=== PATIENT | female | born 1985 | race Caucasian/White ===

== ENCOUNTER 2018-02-25 13:26 | Emergency (ER) | payer OTHER | END 2018-02-25 14:03 | disposition left against medical advice (07) | LOC: ER 13:27 | DX: Z76.0 Encounter for issue of repeat prescription (principal); Z53.21 Procedure and treatment not carried out due to patient leaving prior to being seen by health care provider ==

== ENCOUNTER 2020-02-01 23:58 | Emergency (ER) | payer MEDICAID, OTHER ==
[~2020-02-01] VITALS: Ht 154.9 cm; Wt 59.0 kg
[2020-02-02 00:02] VITALS: BP 133/95
[2020-02-02] MEDS ORDERED: SULF1TAB49 PO (00:29)
[2020-02-02] MEDS ORDERED: CEPH500C5 PO (00:29)
[2020-02-02] MEDS ORDERED: cephalexin 500mg capsule PO ONE (00:30)
[2020-02-02] MEDS ORDERED: sulfamethoxazole/trimethoprim DS (800/160mg) tablet PO ONE (00:30)
== END 2020-02-02 01:00 | disposition home or self-care (01) ==
LOC: ER 23:58
DX: L03.113 Cellulitis of right upper limb (principal); F11.10 Opioid abuse, uncomplicated; M79.641 Pain in right hand; M79.89 Other specified soft tissue disorders; F17.200 Nicotine dependence, unspecified, uncomplicated; F15.90 Other stimulant use, unspecified, uncomplicated; Z59.0 Homelessness; Z88.5 Allergy status to narcotic agent; Z79.2 Long term (current) use of antibiotics
CPT/HCPCS: 99283

== ENCOUNTER 2020-02-05 23:43 | Emergency (ER) | payer MEDICAID ==
[~2020-02-05 23:43] MED LIST: CEPH500C5 PO; SULF1TAB49 PO
--- NOTE | 2020-02-06 00:15 | NUR ---
pt left er after registering MD aware, no need to call patient.
== END 2020-02-06 00:15 | disposition left against medical advice (07) ==
LOC: ER 23:44
DX: F19.239 Other psychoactive substance dependence with withdrawal, unspecified (principal); Z53.21 Procedure and treatment not carried out due to patient leaving prior to being seen by health care provider

== ENCOUNTER 2021-11-27 19:21 | Emergency (ER) | payer MEDICAID ==
[~2021-11-27] VITALS: Ht 154.9 cm; Wt 65.9 kg
[2021-11-27 19:30] VITALS: BP 142/86
[2021-11-27] MEDS ORDERED: bisacodyl 5mg tablet.DR PO ONE (20:15)
[2021-11-27] MEDS ORDERED: magnesium citrate 296ml oral solution PO ONE (20:15)
[2021-11-27] MEDS ORDERED: methylnaltrexone br 12mg/0.6ml inj***SubQ only SQ ONE (20:15)
[2021-11-27] MEDS ORDERED: MAGN296S68 PO (20:16)
[2021-11-27] MEDS ORDERED: BISA-79 PO (20:16)
== END 2021-11-27 20:58 | disposition home or self-care (01) ==
LOC: ER 19:21
DX: K59.00 Constipation, unspecified (principal); F15.20 Other stimulant dependence, uncomplicated; F11.90 Opioid use, unspecified, uncomplicated; Z88.5 Allergy status to narcotic agent; Z98.51 Tubal ligation status; Z56.0 Unemployment, unspecified
CPT/HCPCS: 96372; 99283; J2212

== ENCOUNTER 2022-02-02 14:31 | Emergency (ER) | payer MEDICAID ==
[~2022-02-02] VITALS: Ht 154.9 cm; Wt 63.6 kg
[~2022-02-02 14:31] MED LIST changes: +BISA-79 PO; -CEPH500C5 PO; +MAGN296S68 PO; -SULF1TAB49 PO
[2022-02-02 14:53] VITALS: BP 118/68
[2022-02-02] MEDS ORDERED: ondansetron 4mg rapidly disintigrating tab PO ONE (15:35)
[2022-02-02 15:50] LABS: BASOPHILS # (AUTO) 0.1 X10'3 (0-0.2); BASOPHILS % (AUTO) 1.2 % (0-1); EOSINOPHILS # (AUTO) 0.3 X10'3 (0-0.9); EOSINOPHILS % (AUTO) 4.2 % (0-6); HEMATOCRIT 43.3 % (35.0-45.0); HEMOGLOBIN 14.7 g/dl (12.0-16.0); LYMPHOCYTES # (AUTO) 1.9 X10'3 (1.1-4.8); LYMPHOCYTES % (AUTO) 30.5 % (21-51); MEAN CORPUSCULAR HEMOGLOBIN 31.3 PG (27.0-31.0); MEAN CORPUSCULAR HGB CONC 33.8 g/dL (33.0-36.5); MEAN CORPUSCULAR VOLUME 92.6 FL (78-98); MONOCYTES # (AUTO) 0.5 X10'3 (0-0.9); MONOCYTES % (AUTO) 7.7 % (2-12); NEUTROPHILS # (AUTO) 3.5 X10'3 (1.8-7.7); NEUTROPHILS % (AUTO) 56.4 % (42-75); PLATELET COUNT 268 X10'3 (140-440); RED BLOOD COUNT 4.68 X10'6 (4.20-5.60); RED CELL DISTRIBUTION WIDTH 13.3 % (11.5-14.5); WHITE BLOOD COUNT 6.1 X10'3 (4.5-11.0)
[2022-02-02 15:59] LABS: URINE HCG NEGATIVE (NEG)
[2022-02-02 16:05] LABS: ALANINE AMINOTRANSFERASE 26 U/L (12-78); ALBUMIN 3.8 G/DL (3.4-5.0); ALBUMIN/GLOBULIN RATIO 1.1 (1.1-1.5); ALKALINE PHOSPHATASE 72 IU/L (46-116); ANION GAP 6 (8-16); ASPARTATE AMINO TRANSFERASE 26 U/L (10-37); BILIRUBIN,TOTAL 0.2 MG/DL (0.1-1.0); BLOOD UREA NITROGEN 20 MG/DL (7-18); BUN/CREATININE RATIO 28.6 (6.6-38.0); CALCIUM 8.5 MG/DL (8.5-10.1); CHLORIDE 106 MMOL/L (99-107); GLUCOSE 91 MG/DL (70-104); LIPASE 63 U/L (73-393); POTASSIUM 4.1 MMOL/L (3.5-5.1); SODIUM 139 MMOL/L (135-145); TOTAL CARBON DIOXIDE 26.9 MMOL/L (24-32); TOTAL PROTEIN 7.3 G/DL (6.4-8.2); eGFR > 90 ML/MIN
[2022-02-02 16:08] LABS: CLARITY,URINE CLOUDY (Clear); COLOR,URINE YELLOW (Yellow); GLUCOSE, URINE NEGATIVE (Neg); KETONES,URINE NEGATIVE (Neg); LEUKOCYTE ESTERASE ,URINE NEGATIVE (Neg); NITRITES, URINE POSITIVE (Neg); OCCULT BLOOD,URINE SMALL (Neg); PROTEIN,URINE NEGATIVE (Neg)
[2022-02-02 16:10] LABS: UA COLLECTION TYPE CLN CATCH MIDSTREAM
[2022-02-02 16:13] LABS: BACTERIA,URINE 4+ /HPF (Neg); MUCUS STRANDS NONE SEEN /LPF (Neg); SQUAMOUS EPITHELIAL CELL,UR MODERATE /LPF (FEW); WBC CLUMPS,URINE FEW /HPF (NEGATIVE)
[2022-02-02] MEDS ORDERED: ONDA4TAB12 PO (16:17)
[2022-02-02] MEDS ORDERED: NITR100C6 PO (16:17)
[2022-02-02] MEDS ORDERED: nitrofuran monohydrate/nitrofuran macrocrysal 100 MG (MacroBID) capsule PO ONE (16:20)
== END 2022-02-02 16:36 | disposition home or self-care (01) ==
LOC: ER 14:31
DX: K52.89 Other specified noninfective gastroenteritis and colitis (principal); Z20.822 Contact with and (suspected) exposure to COVID-19; N30.00 Acute cystitis without hematuria; F15.10 Other stimulant abuse, uncomplicated; F11.10 Opioid abuse, uncomplicated; Z59.00 Homelessness unspecified; Z88.5 Allergy status to narcotic agent; Z79.899 Other long term (current) drug therapy
CPT/HCPCS: 36415; 80053; 81001; 81025; 83690; 85025; 87077; 87088; 87186; 87502; 87503; 87811; 99283; J7030

== ENCOUNTER 2022-07-13 17:43 | Emergency (ER) | payer MEDICAID ==
[~2022-07-13] VITALS: Ht 157.5 cm; Wt 64.0 kg
[~2022-07-13 17:43] MED LIST changes: +NITR100C6 PO; +ONDA4TAB12 PO
[2022-07-13 17:47] VITALS: BP 116/76
[2022-07-13] MEDS ORDERED: TRIA15CR61 TOP (17:52)
== END 2022-07-13 18:02 | disposition home or self-care (01) ==
LOC: ER 17:43
DX: L23.9 Allergic contact dermatitis, unspecified cause (principal); F15.20 Other stimulant dependence, uncomplicated; F11.10 Opioid abuse, uncomplicated; Z88.5 Allergy status to narcotic agent; Z98.51 Tubal ligation status; Z56.0 Unemployment, unspecified; Z59.00 Homelessness unspecified
CPT/HCPCS: 99283

== ENCOUNTER 2023-01-22 10:36 | Emergency (ER) | payer MEDICAID ==
[~2023-01-22] VITALS: Ht 157.5 cm; Wt 63.8 kg
[2023-01-22 11:08] LABS: BASOPHILS % (AUTO) 0.7 % (0-1); EOSINOPHILS # (AUTO) 0.2 X10'3 (0-0.9); EOSINOPHILS % (AUTO) 3.4 % (0-6); HEMATOCRIT 44.4 % (35.0-45.0); HEMOGLOBIN 14.7 g/dl (12.0-16.0); LYMPHOCYTES # (AUTO) 2.8 X10'3 (1.1-4.8); LYMPHOCYTES % (AUTO) 37.9 % (21-51); MEAN CORPUSCULAR HEMOGLOBIN 30.7 PG (27.0-31.0); MEAN CORPUSCULAR VOLUME 92.8 FL (78-98); MEAN PLATELET VOLUME 7.1 FL (7.4-10.4); MONOCYTES # (AUTO) 0.5 X10'3 (0-0.9); MONOCYTES % (AUTO) 7.5 % (2-12); NEUTROPHILS # (AUTO) 3.7 X10'3 (1.8-7.7); NEUTROPHILS % (AUTO) 50.5 % (42-75); PLATELET COUNT 246 X10'3 (140-440); RED BLOOD COUNT 4.79 X10'6 (4.20-5.60); RED CELL DISTRIBUTION WIDTH 12.9 % (11.5-14.5); WHITE BLOOD COUNT 7.3 X10'3 (4.5-11.0)
[2023-01-22 11:20] LABS: URINE HCG NEGATIVE (NEG)
[2023-01-22 11:27] LABS: BILIRUBIN,URINE NEGATIVE (Neg); CLARITY,URINE SLIGHTLY CLOUDY (Clear); COLOR,URINE YELLOW (Yellow); GLUCOSE, URINE NEGATIVE (Neg); KETONES,URINE TRACE mg/dl (Neg); LEUKOCYTE ESTERASE ,URINE NEGATIVE (Neg); NITRITES, URINE POSITIVE (Neg); OCCULT BLOOD,URINE NEGATIVE (Neg); PROTEIN,URINE NEGATIVE (Neg); UROBILINOGEN,URINE 0.2 E.U/dL (0.2-1.0)
[2023-01-22 11:35] LABS: UA COLLECTION TYPE CLN CATCH MIDSTREAM
[2023-01-22 11:38] LABS: BACTERIA,URINE 3+ /HPF (Neg); MUCUS STRANDS NONE SEEN /LPF (Neg); RBC,URINE NONE SEEN /HPF (0-2); SQUAMOUS EPITHELIAL CELL,UR MANY /LPF (FEW)
[2023-01-22 11:44] LABS: ALANINE AMINOTRANSFERASE 11 U/L (12-78); ALBUMIN 4.2 G/DL (3.4-5.0); ALBUMIN/GLOBULIN RATIO 1.1 (1.1-1.5); ALKALINE PHOSPHATASE 56 IU/L (46-116); ANION GAP 12 (8-16); ASPARTATE AMINO TRANSFERASE 22 U/L (10-37); BILIRUBIN,TOTAL 0.4 MG/DL (0.1-1.0); BLOOD UREA NITROGEN 11 MG/DL (7-18); BUN/CREATININE RATIO 15.1 (10.0-20.0); CALCIUM 9.2 MG/DL (8.5-10.1); CHLORIDE 103 MMOL/L (99-107); CREATININE 0.73 MG/DL (0.40-0.90); GLUCOSE 89 MG/DL (70-104); LIPASE 11 U/L (16-77); POTASSIUM 3.6 MMOL/L (3.5-5.1); SODIUM 136 MMOL/L (135-145); TOTAL CARBON DIOXIDE 21.2 MMOL/L (24-32); TOTAL PROTEIN 7.9 G/DL (6.4-8.2); eCRCL 83 ML/MIN; eGFR 89 ML/MIN
[2023-01-22] MEDS ORDERED: magnesium citrate 296ml oral solution PO ONE (11:45)
[2023-01-22 11:57] VITALS: TEMP 98.2
[2023-01-22] MEDS ORDERED: BISA10SU60 RC (13:24)
[2023-01-22 13:57] VITALS: BP 121/87; PULSE 97; RESP 18; O2SAT 99
[2023-01-29] MEDS ORDERED: CHLO118M PO (09:10)
[2023-01-29] MEDS ORDERED: PENI500T2 PO (09:10)
[2023-01-29] MEDS ORDERED: IBUP-1984 PO (09:10)
[2023-01-29] MEDS ORDERED: POLY119P2 PO (09:12)
== END 2023-01-22 14:00 | disposition home or self-care (01) ==
LOC: ER 10:36
DX: K59.00 Constipation, unspecified (principal); F17.200 Nicotine dependence, unspecified, uncomplicated; F15.10 Other stimulant abuse, uncomplicated; F11.10 Opioid abuse, uncomplicated; Z59.00 Homelessness unspecified; Z56.0 Unemployment, unspecified
CPT/HCPCS: 36415; 80053; 81001; 81025; 83690; 85025; 99283

== ENCOUNTER → 2023-01-29 | Emergency (ER) | payer MEDICAID ==
[~2023-01-29] VITALS: Ht 157.5 cm; Wt 62.4 kg
[~2023-01-29] MED LIST changes: +BISA10SU60 RC; +CHLO118M PO; +IBUP-1984 PO; +PENI500T2 PO; +POLY119P2 PO
[2023-01-29 08:52] VITALS: BP 123/76; PULSE 79; TEMP 97.9; O2SAT 99
[2023-01-29 08:57] VITALS: RESP 18
--- NOTE | 2023-01-29 11:26 | NUR ---
I AGREE WITH THE ASSESSMENT PER Astrid GHOSH LVN.
== END | disposition home or self-care (01) ==
LOC: ER 08:46
DX: K04.7 Periapical abscess without sinus (principal); F15.10 Other stimulant abuse, uncomplicated; F11.10 Opioid abuse, uncomplicated; Z88.5 Allergy status to narcotic agent; Z79.899 Other long term (current) drug therapy
CPT/HCPCS: 99283

== ENCOUNTER 2024-05-06 06:29 | Emergency (ER) | payer SELFPAY ==
[~2024-05-06] VITALS: Ht 157.5 cm; Wt 59.4 kg
[~2024-05-06 06:29] MED LIST changes: -IBUP-1984 PO; +ONDA-243 PO; -ONDA4TAB12 PO; -PENI500T2 PO
[2024-05-06 06:34] VITALS: TEMP 97.5
[2024-05-06 07:48] LABS: ALANINE AMINOTRANSFERASE 13 U/L (12-78); ALBUMIN 4.1 G/DL (3.4-5.0); ALBUMIN/GLOBULIN RATIO 0.9 (1.1-1.5); ALKALINE PHOSPHATASE 82 IU/L (46-116); ANION GAP 11 (8-16); ASPARTATE AMINO TRANSFERASE 19 U/L (10-37); BILIRUBIN,TOTAL 0.6 MG/DL (0.1-1.0); BLOOD UREA NITROGEN 9 MG/DL (7-18); BUN/CREATININE RATIO 12.3 (10.0-20.0); CALCIUM 9.1 MG/DL (8.5-10.1); CHLORIDE 103 MMOL/L (99-107); CREATININE 0.73 MG/DL (0.40-0.90); ETHANOL < 10 MG/DL (<10); GLUCOSE 138 MG/DL (70-104); LIPASE 25 U/L (16-77); POTASSIUM 3.7 MMOL/L (3.5-5.1); SALICYLATE 5.4 MG/DL (4.0-20.0); SODIUM 135 MMOL/L (135-145); TOTAL CARBON DIOXIDE 21.4 MMOL/L (24-32); TOTAL PROTEIN 8.6 G/DL (6.4-8.2); eCRCL 81 ML/MIN; eGFR 88 ML/MIN
[2024-05-06 08:01] LABS: ACETAMINOPHEN < 2.0 UG/ML (10-30)
[2024-05-06 08:23] LABS: BASOPHILS # (AUTO) 0.1 X10'3 (0-0.2); BASOPHILS % (AUTO) 0.9 % (0-1); EOSINOPHILS # (AUTO) 0.1 X10'3 (0-0.9); EOSINOPHILS % (AUTO) 0.5 % (0-6); HEMATOCRIT 44.3 % (35.0-45.0); HEMOGLOBIN 15.4 g/dl (12.0-16.0); LYMPHOCYTES # (AUTO) 1.1 X10'3 (1.1-4.8); LYMPHOCYTES % (AUTO) 11.5 % (21-51); MEAN CORPUSCULAR HGB CONC 34.7 g/dL (33.0-36.5); MEAN CORPUSCULAR VOLUME 95.3 FL (78-98); MEAN PLATELET VOLUME 6.9 FL (7.4-10.4); MONOCYTES # (AUTO) 0.6 X10'3 (0-0.9); MONOCYTES % (AUTO) 6.7 % (2-12); NEUTROPHILS # (AUTO) 7.8 X10'3 (1.8-7.7); NEUTROPHILS % (AUTO) 80.4 % (42-75); PLATELET COUNT 342 X10'3 (140-440); RED BLOOD COUNT 4.65 X10'6 (4.20-5.60); RED CELL DISTRIBUTION WIDTH 13.4 % (11.5-14.5); WHITE BLOOD COUNT 9.7 X10'3 (4.5-11.0)
[2024-05-06] MEDS ORDERED: ONDA-243 PO (08:49)
[2024-05-06 08:54] VITALS: BP 137/96; PULSE 71; RESP 16; O2SAT 98
[2024-05-06] MEDS: ondansetron 4mg rapidly disintigrating tab PO ONE (08:54)
== END 2024-05-06 09:00 | disposition home or self-care (01) ==
LOC: ER 06:30
DX: Z00.00 Encounter for general adult medical examination without abnormal findings (principal); F12.90 Cannabis use, unspecified, uncomplicated; F11.90 Opioid use, unspecified, uncomplicated; Z88.5 Allergy status to narcotic agent; Z98.51 Tubal ligation status
CPT/HCPCS: 36415; 80053; 80320; 80329; 83690; 85025; 93005; 99284